=== PATIENT | male | born 1945 | race Caucasian/White ===

== ENCOUNTER → 2023-12-11 07:00 | Outpatient (REF) | payer OTHER, SELFPAY | LOC: RCS 07:00 | PROVIDERS: ATTENDING PHYSICIAN Internal Medicine Cardiovascular Disease; FAMILY PHYSICIAN Student in an Organized Health Care Education/Training Program | DX: I48.0 Paroxysmal atrial fibrillation (principal) | CPT/HCPCS: 93306 ==

== ENCOUNTER → 2024-02-05 07:42 | Outpatient (REF) | payer OTHER, SELFPAY | LOC: MRI 3T 07:42 | PROVIDERS: ATTENDING PHYSICIAN Specialist; FAMILY PHYSICIAN Student in an Organized Health Care Education/Training Program | DX: N28.89 Other specified disorders of kidney and ureter (principal) | CPT/HCPCS: 74183 ==

== ENCOUNTER → 2024-02-13 07:29 | Outpatient (REF) | payer OTHER, SELFPAY | LOC: DHCBC/DCA 07:29 | PROVIDERS: ATTENDING PHYSICIAN Internal Medicine Cardiovascular Disease; FAMILY PHYSICIAN Student in an Organized Health Care Education/Training Program | DX: I48.0 Paroxysmal atrial fibrillation (principal) | CPT/HCPCS: 78452; 93017; A9500; J2785 ==

== ENCOUNTER 2024-04-09 08:20 | Day surgery (SDC) | payer OTHER, SELFPAY ==
[2024-04-02 10:51] VITALS: BMI 27.8
[2024-04-02 11:18] LABS: % Basophils 0.7 % (0-2); % Immature Granulocytes 0.3 % (0-0.5); % Lymphocytes 15.4 % (20.5-51.1); % Monocytes 6.5 % (1.7-9.3); % Neutrophils 76.1 % (42.2-75.2); Absolute Basophils 0.1 10^3/uL (0-0.2); Absolute Eosinophils 0.1 10^3/uL (0-0.7); Absolute Lymphocytes 1.1 10^3/uL (1.2-3.4); Absolute Monocytes 0.5 10^3/uL (0.1-0.6); Absolute Neutrophils 5.6 10^3/uL (1.4-6.5); Hematocrit 38.9 % (39.0-52.0); Hemoglobin 14.1 g/dL (13.0-18.0); Mean Corp Hgb Conc. 36.2 g/dL (33.0-37.0); Mean Corpuscular Hgb 32.9 pg (27.0-31.0); Mean Corpuscular Volume 90.7 fL (80.0-94.0); Mean Platelet Volume 10.8 fL (7.4-10.4); Nucleated Red Blood Cells % 0 % (-); Platelet Count 199 10^3/uL (130-400); Red Blood Cell Count 4.29 10^6/uL (4.70-6.10); Red Cell Dist. Width 13.4 % (11.5-14.5); White Blood Cell Count 7.3 10^3/uL (4.8-10.8)
[2024-04-02 11:19] LABS: ALT (SGPT) 22 U/L (0-50); AST (SGOT) 27 U/L (17-59); Albumin 4.2 g/dl (3.5-5.0); Alkaline Phosphatase 70 U/L (38-126); Blood Urea Nitrogen 22 mg/dl (9-20); Calcium 10.3 mg/dl (8.4-10.2); Carbon Dioxide 28 mmol/L (22-30); Chloride 103 mmol/L (98-107); Estimated Creatinine Clearance 45 ml/min; Glucose 104 mg/dl (70-99); INR 1.38; Magnesium 1.9 mg/dl (1.6-2.3); Potassium 3.9 mmol/L (3.5-5.1); Sodium 144 mmol/L (135-145); Total Bilirubin 0.9 mg/dl (0.2-1.3); Total Protein 6.9 g/dl (6.3-8.2); eGFR > 60.00
[2024-04-09] VITALS (17 sets, daily range): BP systolic 115–146; BP diastolic 74–104; BMI 27.8
[2024-04-09 11:02] LABS: ACT-LR - POC 332 Seconds (116-155)
[2024-04-09 11:22] LABS: ACT-LR - POC 213 Seconds (116-155)
[2024-04-09 11:28] LABS: ACT-LR - POC 366 Seconds (116-155)
[2024-04-09 11:59] LABS: ACT-LR - POC 313 Seconds (116-155)
[2024-04-09 12:20] LABS: ACT-LR - POC 387 Seconds (116-155)
[2024-04-09 12:42] LABS: ACT-LR - POC 382 Seconds (116-155)
--- NOTE | 2024-04-09 14:35 | PTCARENOTE ---
Rec'd report from Chasidy in the EP lab; Rec'd pt AAOx3 w/no c/o CP or SOB. Pt reports back pain which is chronic for him & he rates as a 7/10. Pt usually takes 5mg Oxycodone PO PRN. This RN contacted FISH MACHINE FEEDER & order obtained. Pt's VS stable w/HR in the
70's, BP on arrival 127/89, SpO2 on RA 94%. Pt is SR on telemetry monitoring. Pt advised of activity restrictions & verbalized his understanding. Pt w/call barton within reach & plan of care ongoing.
--- NOTE | 2024-04-09 15:23 | CM ---
Chart reviewed. Patient is independent of ADLS, lives alone in a 1 STH, 1 ARTIE, 0 DME. Patient currently with no discharge needs. Plan is to return home. CM to follow
--- NOTE | 2024-04-09 15:48 | ITS.CL.ABL ---
Countersinker Balance Screw Hole - Ablation
Ablation
Procedure Report:
ELECTROPHYSIOLOGIC STUDY AND POSSIBLE ABLATION
DATE: 04/09/24
Primary Care Provider: Dr. Saida Garcia
Primary gut carrier: Dr. Remi Carney
INDICATION:
Symptomatic Atrial Fibrillation.
Paroxysmal
HISTORY: See H and P.
Symptomatic AF, poorly controlled with attempted medical therapy.
Abraham is referred for electrophysiologic consultation from Dr. Remi Carney regarding increasing symptom burden of atrial fibrillation with most recent monitor showing increase in AF burden to 14.5%
HAS-BLED: 1
Age
CHADSVASc:
HTN
Age
PRESENTING RHYTHM: AF
HISTORY: See H and P.
Symptomatic AF, poorly controlled with attempted medical therapy.
ANTICOAGULATION: Apixaban 5 mg twice daily
'TIME-OUT': called and confirmed.
SEDATION/ANESTHESIA: provided via the anesthesia department using general anesthesia.
PROCEDURE:
Ultrasound Guidance performed by md was utilized for femoral venous Vascular Access b/l.
A decapolar CS catheter was placed within the CS for mapping and pacing.
The intracardiac ultrasound catheter was positioned in the RA for continuous intracardiac ultrasound imaging.
Heparin bolus and infusion to target ACT at 300 -350 seconds was administered. Transseptal puncture was performed. This entailed advancing a sheath with dilator (13 Fr AgilApplika) into the superior vena cava and withdrawing both (monitoring
intracardiac ultrasound, fluoroscopy and tip pressure) with the tip oriented toward the atrial septum. The fossa ovalis was engaged (indicated by sudden displacement of the sheath tip as well as tenting of the fossa seen on intracardiac
ultrasound). Transseptal puncture required 1 pass with the Brockenbrough needle. Left atrial catheter position was confirmed by echocardiographic imaging, pressure monitoring (LA mean pressure 12 mm Hg) and fluoroscopy. The sheath was advanced
over the dilator and positioned in the left atrium.
The multipolar mapping catheter was initially positioned through the transseptal sheath for high density mapping.
Geometry and voltage mapping was performed using the [employer] multipolar grid catheter. Navex was utilized for three-dimensional electroanatomical mapping.
A 3-D map was created using Navex. A 3-D reconstructed CT image was compared to the 3-D Navex map to assist in anatomic evaluation, mapping and ablation.
There are 4 distinct pulmonary veins, LSPV, LIPV, RSPV, RIPV.
[employer] PFA catheter and system was used for cardiac ablation as part of the Volt RIRI trial. Catheter positioning was guided and confirmed using both I.C.E. and fluoroscopy.
PV isolation approach was used to electrically isolate each PV ostia as specified in the volt trial.
The ablation catheter was withdrawn from the left atrium and the multipolar Petit grid catheter was substituted through the Agilis sheath into the left atrium.
Remapping with the [employer] multipolar grid catheter found that all PVPs were eliminated at each vein demonstrating entrance block. Pacing from the multipolar mapping catheter around the the circumference of the ostia was performed at 10 ma and 2.0
msec output to assess for exit block. This demonstrated electrical isolation at each of the pulmonary vein ostia.
Entrance and exit block was demonstrated at each of the pulmonary veins at least 20 minutes after ablation was completed at any particular pulmonary vein.
I.C.E. :
Pre-Ablation Post-Ablation
LVEF: 55 % 55 %
WMA: none none
Pericardial effusion: none none
COMPLICATIONS:
None
SUMMARY:
- Mapping and ablation to isolate the PVs using the [employer] ablation system
- 3-D Electroanatomical Mapping
- Intracardiac Ultrasound
Post ablation, I discussed today's findings and results with the patient's son, Bacilio.
RECOMMENDATIONS:
- Observe in monitored bed.
- Maintain oral anticoagulation.
- Office visit with me in 3 months (07/08/24).
- Continue cardiovascular care with Dr. Remi Carney
Copy to:
Dr. Saida Garcia
Dr. Remi Carney
[2024-04-09] MEDS: ROXICODONE 5 MG PO ×2 (16:21→22:51)
[2024-04-09] MEDS: ANESTHETIC LOZENGE 1 LOZENGE PO ×2 (16:24→20:46)
[2024-04-09] MEDS: PROSCAR 5 MG PO (18:11)
[2024-04-09] MEDS: FLOMAX 0.4 MG PO (18:11)
[2024-04-09] MEDS: CRESTOR 10 MG PO (18:11)
[2024-04-09] MEDS: VASOTEC 5 MG PO (20:47)
[2024-04-09] MEDS: ELIQUIS 5 MG PO (20:47)
[2024-04-09] MEDS: NORVASC 5 MG PO (20:47)
[2024-04-09] MEDS: CARDIZEM SR 120 MG PO (20:47)
[2024-04-09] MEDS: SODIUM BICARBONATE 325 MG PO (20:48)
[2024-04-09] MEDS: AMBIEN 5 MG PO (21:37)
--- NOTE | 2024-04-10 02:52 | PTCARENOTE ---
Pt received start of shift, HR appears to be SR w/ 1st degree AV block and PACs. R groin dressing intact - scant sanguineous drainage noted after ambulation. Site soft, no hematoma. Pt denies any CP or SOB. Informed to notify RN if any changes, call
barton within reach.
[2024-04-10 05:07] VITALS: BP 136/91
[2024-04-10] MEDS: SYNTHROID 75 MCG PO (05:27)
[2024-04-10 05:49] LABS: Hematocrit 37.8 % (39.0-52.0); Mean Corp Hgb Conc. 34.4 g/dL (33.0-37.0); Mean Corpuscular Volume 90.2 fL (80.0-94.0); Mean Platelet Volume 10.3 fL (7.4-10.4); Platelet Count 171 10^3/uL (130-400); Red Blood Cell Count 4.19 10^6/uL (4.70-6.10); Red Cell Dist. Width 13.7 % (11.5-14.5); White Blood Cell Count 10.7 10^3/uL (4.8-10.8)
[2024-04-10 06:00] VITALS: BMI 27.8
[2024-04-10 06:14] LABS: Blood Urea Nitrogen 26 mg/dl (9-20); Calcium 9.9 mg/dl (8.4-10.2); Carbon Dioxide 26 mmol/L (22-30); Chloride 105 mmol/L (98-107); Estimated Creatinine Clearance 60 ml/min; Glucose 111 mg/dl (70-99); Magnesium 1.9 mg/dl (1.6-2.3); Potassium 4.4 mmol/L (3.5-5.1); Sodium 140 mmol/L (135-145); eGFR > 60.00
[2024-04-10] MEDS: ANESTHETIC LOZENGE 1 LOZENGE PO (06:26)
[2024-04-10] MEDS: ROXICODONE 5 MG PO (07:13)
--- NOTE | 2024-04-10 07:50 | PTCARENOTE ---
Assumed care of pt from prev nsg shift, Pt AAOx3 w/no c/o CP or SOB. Pt w/R groin access site w/dressing w/old shadowing drainage but intact. Pt w/VS stable w/HR in the 70's & BP this AM 136/91. Pt is SR w/occas PAC's on telemetry monitoring. Pt
does c/o /10 chronic low back pain for which he was given PRN PO Oxycodone by the prev shift RN. Advised pt to allow a little more time for the med to work. Pt w/no addtl needs at this time. Plan of care ongoing.
[2024-04-10] MEDS: CARDIZEM SR 120 MG PO (09:30)
[2024-04-10] MEDS: VASOTEC 5 MG PO (09:30)
[2024-04-10] MEDS: FLOMAX 0.4 MG PO (09:30)
[2024-04-10] MEDS: ELIQUIS 5 MG PO (09:30)
[2024-04-10] MEDS: ZYLOPRIM 300 MG PO (09:30)
[2024-04-10] MEDS: PROSCAR 5 MG PO (09:31)
[2024-04-10] MEDS: ORETIC 25 MG PO (09:31)
[2024-04-10] MEDS: NORVASC 5 MG PO (09:31)
--- NOTE | 2024-04-10 09:31 | W.PN.CARDCBS ---
Addendum entered and electronically signed by Alexander Del Rosario MD 04/10/24 11:20:
Patient seen, interviewed and examined by me.
Well-appearing, no acute distress
Regular rate and rhythm with normal S1 and S2, no S3 no S4. There is a grade 1/6 apical holosystolic murmur and no rubs. PMI is normally placed.
Lungs are clear to auscultation bilaterally without wheezes rales or rhonchi.
Abdomen soft nontender nondistended with normoactive bowel sounds
Extremities show trace pretibial edema bilaterally no clubbing or cyanosis. R groin without hematoma or bruits. + 2 pukses.
Neurologic exam is grossly nonfocal.
Agree with advanced practice professionals assessment and plan as noted below.
We reviewed yesterday's procedure and results.
He continues to demonstrate sinus rhythm on telemetry with PACs and short runs of PAT which are asymptomatic.
Overall remains quite stable and is ready for discharge to home today.
We reviewed discharge instructions were outlined he should avoid heavy lifting exercising and yard work for 5 days.
He should maintain uninterrupted oral anticoagulation. He will continue current dose of diltiazem
We will arrange office visit for him to see me post procedure.
Original Note:
Today's Communication / Plan
-
post PVI, stable for d/c home
Impression / Plan
-
Primary Care Provider: Dr. Saida Garcia
Primary index clerk: Dr. Remi Carney
Impression:
Symptomatic paroxysmal Afib
post PFA PVI VOLT study system 04/09/24
HTN
HLD
SVT
BPH
Gout
Hypothyroidism
dilated ascending aorta
stable renal mass
osteoarthritis
Plan:
post ablation feels good
tele SR with PAC's
R fem site soft with drainage noted, dressing changed for small ooze
NIHSS - 0
OAC Eliquis
continue diltiazem
Activity restrictions reviewed
f/u Dr. Fatima in 3 mo
stable for home today if groin site stable
Progress Note - Kettle Worker
Subjective
Date of Service: April 10, 2024
no cp, sob
Objective
Labs:
04/10/24 05:14
04/10/24 05:14
Labs
Hgb 13.0 g/dL (13.0-18.0) 04/10/24 05:14
Hct 37.8 % (39.0-52.0) L 04/10/24 05:14
Plt Count 171 10^3/uL (130-400) 04/10/24 05:14
PT 17.0 Sec (11.4-14.6) H 04/02/24 10:43
INR 1.38 04/02/24 10:43
Sodium 140 mmol/L (135-145) 04/10/24 05:14
Potassium 4.4 mmol/L (3.5-5.1) 04/10/24 05:14
BUN 26 mg/dl (9-20) H 04/10/24 05:14
Creatinine 0.9 mg/dL (0.7-1.3) 04/10/24 05:14
Glucose 111 mg/dl (70-99) H 04/10/24 05:14
Vital Signs and I&O:
Vital Signs
Temp Pulse Resp BP Pulse Ox
98 F 76 18 136/91 93
04/10/24 05:07 04/10/24 08:45 04/10/24 05:07 04/10/24 05:07 04/10/24 05:07
Vital Signs
Temp Pulse Resp BP Pulse Ox
98 F 76 18 136/91 93
04/10/24 05:07 04/10/24 08:45 04/10/24 05:07 04/10/24 05:07 04/10/24 05:07
Intake & Output
04/08/24 04/09/24 04/10/24 04/11/24
06:59 06:59 06:59 06:59
Intake Total 3040 / 3040
Output Total 650 / 650
Balance 2390 / 2390
Physical Exam
Physical Exam
General: No acute distress, AAOX3
HEENT: EOMI b/l
Neck: Negative JVD, Neg carotid bruits b/l
Heart: Regular, Negative S3 positive S1/S2, Negative S4, No murmur
Lungs: CTA b/l, negative wheezes/rales/rhonchi
Abd: Positive BS, NT/ND, neg rebound/rigidity/guarding
Ext: Negative cyanosis/clubbing/edema
Skin: R fem site dressing old bloody drainage, dressing changed, scant ooze at puncture site, soft
NEUROLOGICAL: The patient is awake, alert, and oriented x3. Pupils
equal, round, reactive to light and accommodation. Extraocular
movements intact. Proprioception is appropriate with no pronator
drift. Motor strength: No cogwheeling. No spasticity. No tremor.
Strength is equal, right upper and left upper extremity, 5/5 right
lower and left lower extremity 5/5. Sensory and deep tendon
reflexes are intact. Cerebellar signs with no dysmetria.
Coordination without ataxia. Gait and station as well as balance
stable. Cranial nerves 2-12 are intact.
[2024-04-10] MEDS: SODIUM BICARBONATE 325 MG PO (09:32)
[2024-04-10 10:57] VITALS: BP 135/79
--- NOTE | 2024-04-10 11:20 | PTCARENOTE ---
D/C instructions discussed w/pt & son. Pt's IV line & secured entrance monitor discontinued. Pt left w/personal belongings including clothing, cell phone & organic gardening teacher. Pt taken out via wheelchair by staff w/son providing transportation home.
--- NOTE | 2024-04-10 14:34 | W.DS.TRANS ---
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
-
Discharge Instructions:
Sleep Apnea Risk Intermediate
Discharge Diagnosis/Procedures Afib post ablation
Diet Low Cholesterol
Driving Restrictions No driving for 24 hours
Instructions:
Stand-Alone Forms: DC Instructions- Cath/EP Lab
Changes to Home Medications: No
Discharge Medications:
DC Medications w/original date entered in [employer]
Sodium Bicarbonate: 5 g PO BID 05/08/19
allopurinol 300 mg tablet 300 mg PO DAILY 05/08/19
levothyroxine 50 mcg tablet 75 mcg PO DAILY 05/08/19
multivitamin 1 tab PO DAILY 05/08/19
acetaminophen 325 mg tablet 650 mg PO Q4HWA Pain 03/05/20
amlodipine 5 mg tablet 5 mg PO BID ##0 03/26/20
enalapril maleate 5 mg tablet 5 mg PO BID ##0 03/26/20
oxycodone 5 mg tablet 5 mg PO Q4HPRN PRN severe pain #30 tabs 03/26/20
apixaban 5 mg tablet (Eliquis) 5 mg PO BID 04/09/24
diltiazem HCl 120 mg capsule,extended release 12 hr 120 mg PO BID 04/09/24
finasteride 5 mg tablet 5 mg PO DAILY 04/09/24
hydrochlorothiazide 12.5 mg capsule 25 mg PO DAILY 04/09/24
psyllium husk 3.4 gram/5.4 gram oral powder (Metamucil) 1 tsp PO DAILY 04/09/24
rosuvastatin 10 mg tablet 10 mg PO DAILY 04/09/24
tamsulosin 0.4 mg capsule 0.4 mg PO DAILY 04/09/24
zolpidem 10 mg tablet 10 mg PO DAILY 04/09/24
Home Medication Changes
Pending Results: No
== END 2024-04-10 11:25 | disposition home or self-care (01) ==
LOC: CATH 08:20
PROVIDERS: Nurse Practitioner Adult Health; ATTENDING PHYSICIAN Internal Medicine Cardiovascular Disease; FAMILY PHYSICIAN Student in an Organized Health Care Education/Training Program; OTHER PHYSICIAN Internal Medicine Cardiovascular Disease
DX: I48.19 Other persistent atrial fibrillation (principal); E03.9 Hypothyroidism, unspecified; N40.0 Benign prostatic hyperplasia without lower urinary tract symptoms; E78.5 Hyperlipidemia, unspecified; I10 Essential (primary) hypertension; I47.10 Supraventricular tachycardia, unspecified; M19.90 Unspecified osteoarthritis, unspecified site; M10.9 Gout, unspecified; N28.89 Other specified disorders of kidney and ureter; G47.00 Insomnia, unspecified; Z79.899 Other long term (current) drug therapy; Z79.890 Hormone replacement therapy; Z79.01 Long term (current) use of anticoagulants; Z00.6 Encounter for examination for normal comparison and control in clinical research program
CPT/HCPCS: C1732 ×2; C1894; C1769; C1730; C1892; C1759; C1766; 36415; 75572; 80048; 80053; 83735; 85025; 85027; 85347; 85610; 86850; 86900; 86901; 93005; 93656; Q9967

== ENCOUNTER → 2025-06-02 07:03 | Outpatient (REF) | payer OTHER, SELFPAY | LOC: MRI 07:03 | PROVIDERS: ATTENDING PHYSICIAN Physician Assistant; FAMILY PHYSICIAN Student in an Organized Health Care Education/Training Program | DX: M54.12 Radiculopathy, cervical region (principal) | CPT/HCPCS: 72141 ==